=== PATIENT | female | born 1975 | race African-American/Black ===

== ENCOUNTER 2017-06-21 09:45 | Emergency (ER) | payer BC ==
[~2017-06-21] VITALS: Ht 157.5 cm; Wt 77.1 kg
[2017-06-21] MEDS ORDERED: NORCO 5-325 TA1 EACH PO (11:29)
[2017-06-21 12:23] VITALS: BP 129/61
[2017-06-21] MEDS ORDERED: CYCLOBENZAPRINE5 MG PO (12:31)
== END 2017-06-21 12:33 | disposition home or self-care (01) ==
LOC: ER 09:45
DX: S16.1XXA Strain of muscle, fascia and tendon at neck level, initial encounter (principal); M54.5 Low back pain; V49.9XXA Car occupant (driver) (passenger) injured in unspecified traffic accident, initial encounter; Y93.89 Activity, other specified; Y92.89 Other specified places as the place of occurrence of the external cause; Y99.8 Other external cause status